=== PATIENT | male | born 1980 | race Caucasian/White ===

== ENCOUNTER 2021-05-02 22:30 | Emergency (ER) | payer OTHER ==
[2021-05-02 23:22] VITALS: BP 128/81; PULSE 92; RESP 17; TEMP 98.3
[2021-05-03] MEDS ORDERED: DIPH,PERTUS(ACELL)TETVAC-LF 0.5 ML VIAL IM ONE (00:26)
[2021-05-03] MEDS ORDERED: LIDOCAINE 1% INJ 10MG/ML (20 ML MDV) SQ ONE (00:26)
[2021-05-03] MEDS ORDERED: BACITRACIN OINT 1 EACH PACKET TOPICAL ONE (00:26)
--- NOTE | 2021-05-03 00:54 | ED ---
Wound/Laceration HPI - General Chief Complaint: Wound/Laceration Stated Complaint: Finger lac Time Seen by Provider: 05/02/21 23:43 Source: patient Mode of arrival: ambulatory Limitations: no limitations - History of Present Illness Initial Comments: 40-year-old male patient presents to the emergency department today for evaluation of laceration to the right index finger. Patient states he was closing a knife when the knife cut his finger and caused a laceration. Denies any numbness or tingling. Denies difficulty with range of motion. Denies any other injuries. Denies use of blood thinning medications. - Related Data Allergies Allergy/AdvReac Type Severity Reaction Status Date / Time No Known Allergies Allergy Verified 05/02/21 23:22 Review of Systems ROS Statement: Those systems with pertinent positive or pertinent negative responses have been documented in the HPI. ROS Other: All systems not noted in ROS Statement are negative. Past Medical History Past Medical History: No Reported History History of Any Multi-Drug Resistant Organisms: None Reported Additional Past Surgical History / Comment(s): back surgery Past Psychological History: No Psychological Hx Reported Smoking Status: Never smoker Past Alcohol Use History: None Reported Past Drug Use History: None Reported General Exam Limitations: no limitations General appearance: alert, in no apparent distress, other (This is a well- developed, well-nourished adult male patient in no acute distress. Vital signs upon presentation are temperature 98.3F, pulse 92, respirations 17, blood pressure 128/81, pulse ox 96% on room air.) Respiratory exam: Present: normal lung sounds bilaterally. Absent: respiratory distress, wheezes, rales, rhonchi, stridor Cardiovascular Exam: Present: regular rate, normal rhythm, normal heart sounds. Absent: systolic murmur, diastolic murmur, rubs, gallop, clicks Extremities exam: Present: full ROM, normal capillary refill, other (There is 3 cm laceration noted to the distal tip of the right index finger. No active bleeding. Range of motion is intact. Skin is otherwise pink, warm, dry. Cap refill less than 3 seconds. Radial pulses 2+.). Absent: tenderness, pedal edema, joint swelling, calf tenderness Neurological exam: Present: alert, oriented X3, CN II-XII intact Psychiatric exam: Present: normal affect, normal mood Skin exam: Present: warm, dry, intact, normal color. Absent: rash Course Vital Signs 05/02/21 23:19 Temperature 98.3 F Pulse Rate 92 Respiratory 17 Rate Blood Pressure 128/81 O2 Sat by Pulse 96 Oximetry Procedures - Laceration Laceration #1 Consent Obtained: verbal consent Indication: laceration Site: hand (Right index finger) Size (cm): 3 Description: linear Depth: simple, single layer Anesthetic Used: lidocaine 1% Anesthesia Technique: local infiltration Amount (mls): 2 Pre-repair: irrigated extensively Type of Sutures: nylon Size of Sutures: 5-0 Number of Sutures: 5 Technique: simple, interrupted Patient Tolerated Procedure: well, no complications Medical Decision Making - Medical Decision Making 40-year-old male patient presents to the emergency department today for evaluation of laceration to the right index finger. Physical examination did reveal 3 cm laceration to the distal tip of the finger. Neurovascular status is intact. Laceration was repaired as documented. He'll be discharged to follow- up with the primary care physician for recheck in 1-2 days. He is instructed to return in 7 days to have the stitches removed. He is educated regarding wound care, signs or symptoms of infection. Return parameters were discussed in detail. He verbalizes understanding and agrees with this plan. My attending is Dr. Roberson. Disposition Clinical Impression: Laceration of right index finger Disposition: HOME SELF-CARE Condition: Good Instructions (If sedation given, give patient instructions): Care For Your Stitches (ED), Laceration (ED) Additional Instructions: Keep wound clean and dry. Avoid submerging wound in water. Cleanse twice daily with warm water and antibacterial soap. Monitor for signs or symptoms of infection including but not limited to redness, swelling, drainage of pus, fever, or chills. Return to have stitches removed in 7 days. Follow-up with the primary care physician as needed. Return for any new, worsening, or concerning symptoms. Is patient prescribed a controlled substance at d/c from ED?: No Referrals: Neville Carvajal MD [Primary Care Provider] - 1-2 days Time of Disposition: 00:54
== END 2021-05-03 01:03 | disposition home or self-care (01) ==
LOC: EC 22:30
DX: S61.210A Laceration without foreign body of right index finger without damage to nail, initial encounter (principal); Z23 Encounter for immunization; W26.0XXA Contact with knife, initial encounter
CPT/HCPCS: 90715; 12002; 90471; 99282; J2001